=== PATIENT | female | born 1955 | race Caucasian/White ===

== ENCOUNTER 2025-02-11 16:12 | Inpatient (IN) | payer OTHER, MEDICAID ==
[2025-02-11] MEDS: Aspirin Chewable 81 MG TAB PO SCH (21:36)
[2025-02-11] MEDS: Acetaminophen 500 MG TAB PO SCH (21:36)
[2025-02-11] MEDS: Famotidine 20 MG TAB PO SCH (21:39)
[2025-02-12 06:07] LABS: ALT (SGPT) Less than 7 U/L (Less than 34); AST (SGOT) 17 U/L (11-34); Albumin 2.6 g/dL (3.1-4.5); Alkaline Phosphatase 99 U/L (40-110); Anion Gap 15 mmol/L (10-20); BUN (Urea Nitrogen) 13 mg/dL (9.8-20.1); Bilirubin, Total 0.4 mg/dL (0.3-1.2); Calc. Creatinine Clearance 0 mL/min (70-130); Calcium 8.5 mg/dL (7.8-10.44); Carbon Dioxide 24 mmol/L (23-31); Chloride 104 mmol/L (98-107); Globulin 2.9 g/dL (2.4-3.5); Glucose 87 mg/dL (80-115); Potassium 4.0 mmol/L (3.5-5.1); Sodium 139 mmol/L (136-145)
[2025-02-12 08:28] LABS: Hematocrit 28.8 % (36.0-47.0); Hemoglobin 8.5 g/dL (12.0-16.0); Mean Corpuscular Hemoglobin 25.0 pg (27.0-31.0); Red Blood Cell (RBC) Count 3.41 mill/uL (4.20-5.40); White Blood Cell (WBC) Count 3.4 10x3/uL (4.8-10.8)
[2025-02-12 08:29] LABS: #Basophils 0.2 thou/uL (0.0-0.2); #Eosinophils 0.1 thou/uL (0.0-0.7); #Lymphocytes 0.9 thou/uL (1.20-3.40); #Monocytes 0.3 thou/uL (0.11-0.59); #Neutrophils 1.9 thou/uL (1.40-6.50); %Basophils 6.0 % (0.0-1.0); %Eosinophils 1.6 % (0.0-10.0); %Lymphocytes 27.8 % (21.0-51.0); %Monocytes 8.5 % (0.0-10.0); %Neutrophils 56.1 % (42.0-75.0); Manual Diff?? NO; Mean Corpuscular Volume 78.6 fl (78.0-98.0); Platelet Count 203 10x3/uL (130-400)
[2025-02-12] MEDS: Ferrous Sulfate 325 MG TAB PO SCH (09:00)
[2025-02-12] MEDS: oxyCODONE 5 MG TAB PO PRN (10:51)
[2025-02-12] MEDS: Senokot S 8.6-50 MG TAB PO PRN (12:54)
[2025-02-13] MEDS: Cyanocobalamin (Vitamin B-12) 1,000 MCG TAB PO SCH (10:26)
[2025-02-14] MEDS: Albuterol 200 PUFF (6.7GM INHALER) INH PRN (07:45)
[2025-02-14] MEDS: Cyanocobalamin (Vitamin B-12) 1,000 MCG TAB PO SCH (08:06)
[2025-02-14] MEDS ORDERED: Non-Formulary Item 1 EACH (Glycopyrrolate/Formoterol Fum [Bevespi Aerosphere Inhaler] 10. IH SCH (09:07)
[2025-02-14] MEDS: oxyCODONE 5 MG TAB PO PRN (20:58)
[2025-02-14] MEDS: Glycopyrrolate/Formoterol Fum [Bevespi Aerosphere Inhaler] INH SCH (21:36)
[2025-02-15] MEDS: GLYCOPYRROLATE INH SCH (08:03)
[2025-02-15] MEDS: BUDESONIDE INH SCH (08:03)
[2025-02-15] MEDS: FORMOTEROL INH SCH (08:03)
[2025-02-16 05:57] LABS: #Basophils 0.2 thou/uL (0.0-0.2); #Eosinophils 0.1 thou/uL (0.0-0.7); #Lymphocytes 1.5 thou/uL (1.20-3.40); #Monocytes 0.4 thou/uL (0.11-0.59); #Neutrophils 2.1 thou/uL (1.40-6.50); %Basophils 4.0 % (0.0-1.0); %Eosinophils 1.9 % (0.0-10.0); %Lymphocytes 35.1 % (21.0-51.0); %Monocytes 9.9 % (0.0-10.0); %Neutrophils 49.1 % (42.0-75.0); Hematocrit 25.6 % (36.0-47.0); Hemoglobin 8.5 g/dL (12.0-16.0); Mean Corpuscular Hemoglobin 25.1 pg (27.0-31.0); Mean Corpuscular Volume 75.9 fl (78.0-98.0); Platelet Count 225 10x3/uL (130-400); Red Blood Cell (RBC) Count 3.37 mill/uL (4.20-5.40); White Blood Cell (WBC) Count 4.2 10x3/uL (4.8-10.8)
[2025-02-16] MEDS: Senokot S 8.6-50 MG TAB PO SCH (08:31)
[2025-02-16] MEDS: ALPRAZolam 0.5 MG TAB PO PRN (15:41)
[2025-02-17] MEDS: Methocarbamol 500 MG TAB PO PRN (01:04)
[2025-02-21 19:28] VITALS: BMI 41.3
[2025-02-22 06:10] LABS: Hematocrit 26.5 % (36.0-47.0); Hemoglobin 8.6 g/dL (12.0-16.0); Mean Corpuscular Hemoglobin 24.5 pg (27.0-31.0); Mean Corpuscular Volume 75.7 fl (78.0-98.0); Platelet Count 268 10x3/uL (130-400); Red Blood Cell (RBC) Count 3.50 mill/uL (4.20-5.40); White Blood Cell (WBC) Count 2.5 10x3/uL (4.8-10.8)
[2025-02-22 06:17] LABS: Anion Gap 17 mmol/L (10-20); BUN (Urea Nitrogen) 13 mg/dL (9.8-20.1); Calc. Creatinine Clearance 72 mL/min (70-130); Calcium 8.6 mg/dL (7.8-10.44); Carbon Dioxide 20 mmol/L (23-31); Chloride 107 mmol/L (98-107); Glucose 90 mg/dL (80-115); Potassium 4.4 mmol/L (3.5-5.1); Sodium 140 mmol/L (136-145)
[2025-02-22 06:40] LABS: Anisocytosis SLIGHT = 6-15 cells (100X) (0-5/hpf); Giant Platelets SLIGHT HPF (0-5); Helmet Cells SLIGHT = 2-5 cells (100X) (0-1/hpf); MDiff Complete? YES; Microcytosis SLIGHT = 6-15 cells (100X) (0-5/hpf); Platelet Adequacy Comment Appears Adequate; Poikilocytosis SLIGHT = 6-15 cells (100X) (0-5/hpf)
[2025-02-22] MEDS: Artificial Tear Ophth Sol 15 ML BOT EA EYE PRN (09:39)
[2025-02-24 11:32] VITALS: BMI 41.3
[2025-02-26 05:56] LABS: #Basophils 0.2 thou/uL (0.0-0.2); #Eosinophils 0.0 thou/uL (0.0-0.7); #Lymphocytes 1.8 thou/uL (1.20-3.40); #Monocytes 0.4 thou/uL (0.11-0.59); #Neutrophils 1.2 thou/uL (1.40-6.50); %Basophils 6.4 % (0.0-1.0); %Eosinophils 1.2 % (0.0-10.0); %Lymphocytes 48.6 % (21.0-51.0); %Monocytes 10.5 % (0.0-10.0); %Neutrophils 33.3 % (42.0-75.0); Hematocrit 26.9 % (36.0-47.0); Hemoglobin 9.0 g/dL (12.0-16.0); Mean Corpuscular Hemoglobin 25.4 pg (27.0-31.0); Mean Corpuscular Volume 76.1 fl (78.0-98.0); Platelet Count 287 10x3/uL (130-400); Red Blood Cell (RBC) Count 3.53 mill/uL (4.20-5.40); White Blood Cell (WBC) Count 3.6 10x3/uL (4.8-10.8)
[2025-02-26 06:08] LABS: Anion Gap 18 mmol/L (10-20); BUN (Urea Nitrogen) 16 mg/dL (9.8-20.1); Calc. Creatinine Clearance 81 mL/min (70-130); Calcium 8.7 mg/dL (7.8-10.44); Carbon Dioxide 21 mmol/L (23-31); Chloride 108 mmol/L (98-107); Glucose 89 mg/dL (80-115); Potassium 3.8 mmol/L (3.5-5.1); Sodium 143 mmol/L (136-145)
[2025-02-27 07:43] VITALS: BP 158/87; TEMP 97.9
== END 2025-02-27 12:04 | disposition home health service (06) | DRG 561 ==
LOC: NAV ACUTE 19:13
PROVIDERS: ADMIT Family Medicine; ATTEND Family Medicine
PROC: F08Z0ZZ Bathing/Showering Techniques Treatment (ICD-10-PCS; principal; 2025-02-11)
PROC: F07Z5ZZ Bed Mobility Treatment (ICD-10-PCS; 2025-02-11)
DX: S42.301D Unspecified fracture of shaft of humerus, right arm, subsequent encounter for fracture with routine healing (principal); R53.81 Other malaise; E03.9 Hypothyroidism, unspecified; I10 Essential (primary) hypertension; F41.9 Anxiety disorder, unspecified; F32.A Depression, unspecified; K21.9 Gastro-esophageal reflux disease without esophagitis; K59.00 Constipation, unspecified; G89.29 Other chronic pain; D51.9 Vitamin B12 deficiency anemia, unspecified; G25.81 Restless legs syndrome; G47.00 Insomnia, unspecified; J45.909 Unspecified asthma, uncomplicated; Z79.899 Other long term (current) drug therapy
CPT/HCPCS: 36415; 80048; 80053; 85025; Q0162